=== PATIENT | male | born 1965 | race Caucasian/White ===

== ENCOUNTER 2022-09-30 14:36 | Emergency (ER) | payer BC, SELFPAY ==
[2022-09-30] VITALS (9 sets, daily range): BP systolic 149–163; BP diastolic 79–97; PULSE 61–70; RESP 18; TEMP 36.2–36.6; O2SAT 99–100
--- NOTE | ~2022-09-30 | CT_ITS ---
EXAMINATION: CT abdomen pelvis w con DATE: 09/30/2022 20:18 INDICATION: mid abd pain raditating bilat L R, superior, and inferior TECHNIQUE: Computed tomography (CT) of the abdomen and pelvis was performed with 100 mL Omnipaque-350 intravenous contrast. Automated exposure control and iterative reconstruction technique were employe d. The dose-length product was 924.28 mGy-cm. COMPARISON: None. FINDINGS: Lower thorax: Small hiatal hernia. Minimal bibasilar scar/atelectasis Liver: Normal. Biliary/Gallbladder: Gallbladder is distended, with wall inflammation. No intrahepatic bile duct dila tation. The common bile duct measures 8 mm at the [place] hepatis. Pancreas: No mass or duct dilation. Spleen: Normal. Adrenals:Right adrenal adenoma. Kidneys: Bilateral hypodensities that are too small to characterize but most likely represent cysts. No obstructing calcification. No hydronephrosis. No suspicious mass. GI tract: Mild distal esophageal and antral wall edema. No small or large bowel dilation. Normal appe ndix. Mesentery/Peritoneum: No ascites, mass, or free air. Retroperitoneum: No mass. Pelvis: Mild bladder wall thickening possibly due to outlet compromise from prostatomegaly. Soft Tissues: Soft tissues and body wall unremarkable. Bones: No acute osseous finding. IMPRESSION: Mild esophagitis/gastritis. Gallbladder hydrops with gallbladder wall inflammatory change, which may represent acute cholecystitis in the appropriate clinical context. The common bile duct measures 8 mm , no obstructing stone or mass is detected. Reviewed, dictated and finalized at location [facility] IMPRESSION: Mild esophagitis/gastritis. Gallbladder hydrops with gallbladder wall inflammat ory change, which may represent acute cholecystitis in the appropriate clinical context. The common bile duct measures 8 mm, no obstructing stone or mass is d etected.
--- NOTE | 2022-09-30 15:10 | ECG_ITS ---
Measurements Intervals [place] Rate: 57 P: 26 NV: 139 QRS: 5 QRSD: 94 T: 2 QT: 386 QTc: 378 Interpretive Statements SINUS BRADYCARDIA MODERATE VOLTAGE CRITERIA FOR LVH, CONSIDER NORMAL VARIANT [MEETS CRITERIA IN ONE OF: R(aVL), S(V1), R(V5), R(V5/V6)+S(V1)] NONSPECIFIC T-WAVE ABNORMALITY ABNORMAL ECG NO PREVIOUS ECG AVAILABLE FOR COMPARISON Electronically Signed On 10-02-2022 14:06:19 ELECTION SUPERVISOR by Truong Padilla M.D.
[2022-09-30 15:27] LABS: Basophils Absolute Auto 0.1 K/mm3 (0.0-0.1); Basophils Percent Auto 0.8 % (0.2-1.2); Eosinophils Absolute Auto 0.1 K/mm3 (0-0.3); Eosinophils Percent Auto 1.5 % (0-4.4); Hematocrit 46.1 % (42.0-52.0); Hemoglobin 15.2 g/dL (14.0-18.0); Immature Granulocyte Absolute 0.04 K/mm3 (0.00-0.031); Immature Granulocyte Percent A 0.5 % (0-0.5); Lymphocytes Absolute Auto 1.84 K/mm3 (0.9-3.2); Lymphocytes Percent Auto 21.2 % (18.3-44.2); Mean Corpuscular Hemoglobin 33.6 pg (26-34); Mean Platelet Volume 11.1 fl (7.4-10.4); Monocytes Absolute Auto 0.8 K/mm3 (0.1-0.6); Monocytes Percent Auto 9.3 % (2.6-8.5); Neutrophils Absolute Auto 5.8 K/mm3 (1.3-6.7); Neutrophils Percent Auto 66.7 % (45.5-73.1); Platelet Count Result 241 k/mm3 (150-375); Red Blood Count 4.52 M/mm3 (4.6-6.20); Red Cell Distribution Width 12.8 % (11.5-14.5); White Blood Count 8.7 K/mm3 (4.5-10.0)
[2022-09-30 15:42] LABS: Alanine Aminotransferase 35 U/L (6-50); Albumin Level 4.6 g/dL (3.5-5.1); Alkaline Phosphatase 52 U/L (38-126); Anion Gap 6 mmol/L (8-16); Aspartate Amino Transferase 30 U/L (17-59); Bilirubin,Total 0.5 mg/dL (0.2-1.3); Blood Urea Nitrogen 20 mg/dL (9-20); Calcium 8.6 mg/dL (8.4-10.2); Carbon Dioxide 28 mmol/L (22-30); Chloride 102 mmol/L (98-107); Estimated CRCL calculation 78 ml/min; Estimated Glomerular Filt Rate > 60; Glucose 163 mg/dL (65-110); Lipase 250 U/L (23-300); Potassium 4.1 mmol/L (3.4-5.0); Sodium 136 mmol/L (137-145)
--- NOTE | 2022-09-30 16:20 | ED.ABDPAIN ---
HPI - Abdominal Pain General Chief Complaint: Abdominal Pain Stated Complaint: abd pain Time Seen by Provider: 09/30/22 16:20 Source: patient Mode of arrival: ambulatory Limitations: no limitations History of Present Illness HPI narrative: Patient is 57 years old white male, presents with intermittent right upper quadrant pain, epigastric pain for years, got worse today around noon. Sharp, no radiation, no aggravating or relieving factors. Patient ate leftover food last night and probably causing his problem right now. History of hypertension, does not smoke or uses drugs, drinks occasionally, was driving through going back to [place] from [place]. Patient came by himself, no significant other. Related Data Allergies Allergy/AdvReac Type Severity Reaction Status Date / Time No Known Allergies Allergy Verified 09/30/22 19:48 Review of Systems Review of Systems: All systems reviewed & are unremarkable except as noted in HPI and below Exam Narrative: General appearance: Well-developed, well-nourished Skin: Normal color Head: Normocephalic, nontraumatic Eyes: Clear conjunctiva ENT: Oropharynx normal, ears normal, nose normal Neck: Supple, nontender Chest and respiratory: Airway patent, no respiratory distress, no accessory muscle use Heart: Regular rate/rhythm Abdomen: Soft, diffuse tenderness epigastric and right upper quadrant positive Bai sign, no organomegaly, quiet bowel sounds Vascular: Normal peripheral pulses, normal capillary refill. 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 Patient is planning to sign AMA. Date: 09/30/22 Time: 21:16 Vital Signs Vital signs: Vital Signs Temperature 36.2 C L 09/30/22 15:05 Pulse Rate 64 09/30/22 15:05 Respiratory Rate 18 09/30/22 15:05 Blood Pressure 163/87 H 09/30/22 15:05 Pulse Oximetry 100 09/30/22 15:05 Oxygen Delivery Room Air 09/30/22 15:05 Temperature 36.6 C 09/30/22 19:41 Pulse Rate 70 09/30/22 20:31 Respiratory Rate 18 09/30/22 20:31 Blood Pressure 159/90 H 09/30/22 20:47 Pulse Oximetry 100 09/30/22 20:47 Oxygen Delivery Room Air 09/30/22 15:05 MDM - Abdominal Pain MDM Narrative Medical decision making narrative: Patient presents with epigastric right upper quadrant pain, denies fever, chills, nausea, vomiting, no history of abdominal surgery. Physical examination consistent with epigastric and right upper quadrant tenderness, gastritis, esophagitis, pancreatitis, cholecystitis my concern at this time. Labs, UA, CT abdomen pelvis with IV contrast, IV fluid, IV Tylenol, GI cocktail ordered. Work-up showed no acute abnormalities, CT abdomen pelvis with IV contrast showed mild esophagitis/gastritis, gallbladder hydrops with gallbladder wall inflammatory change, which may represent acute cholecystitis in the appropriate clinical context. The common bile duct measures 8 mm no obstructing stone or mass is detected. Patient would like to drive back to [place], no significant other, in case of surgery would like to have it back home. Patient signed AMA, and was advised to get clear liquid diet and to not to eat until go back to [place]. I declare that I have personally explained to the patient the risks and consequences involved in leaving this facility at this time. the benefits of continued treatment and/or hospitalization. And the alternatives. If any. to co
--- NOTE | 2022-09-30 19:39 | PC.NURSE ---
Triage note reviewed and confirmed. Pt c/o middle abd'l pain x 1400 today. States he thinks its due to eating his leftover calamari. Denies any pertinent medical problems. a&ox4, NAD, no bowel or bladder symptoms.
[2022-09-30] MEDS: SODIUM CHLORIDE 0.9% IV 1,000 ML 999 ML IV CONT (19:48)
[2022-09-30 20:00] LABS: Appearance Urine Clear (Clear); Bilirubin Urine Negative (Negative); Blood Urine Negative (Negative); Color Urine Yellow (Yellow); Glucose Urine UA 2+ mg/dL (Negative); Ketones Urine Negative (Negative); Leukocyte Esterase Ur 1+ LEU/UL (Negative); Nitrate Urine Negative (Negative); Protein Urine Negative (Negative); Urobilinogen Urine 0.2 mg/dL (<2.0); pH Urine 5.5 (5.0-9.0)
[2022-09-30 20:07] LABS: Mucus Urine Rare /lpf; RBC Urine 0-2 /hpf (0-2)
[2022-09-30 20:14] LABS: Add Urine Microscopic? YES
[2022-09-30] MEDS: ONDANSETRON INJ 4 MG/2 ML VIAL IV PUSH (21:19)
[2022-09-30] MEDS: BELLADONNA ALK/PHENOB ELIX 10 ML, MAG HYDROX/ALUMINUM HYD/SIMETH 30 ML, LIDOCAINE HCL 2... PO (21:32)
== END 2022-09-30 21:42 | disposition left against medical advice (07) ==
PROVIDERS: Emergency Medicine; Emergency Provider Emergency Medicine
DX: K81.0 Acute cholecystitis (principal); K29.70 Gastritis, unspecified, without bleeding; R00.1 Bradycardia, unspecified; R94.31 Abnormal electrocardiogram [ECG] [EKG]
CPT/HCPCS: 36415; 74177; 80053; 81001; 83690; 85025; 87086; 93005; 96361; 96365; 96375; 99284; A9270; J0131; J2405; J7030; Q9967